=== PATIENT | male | born 1970 | race Caucasian/White ===

== ENCOUNTER 2018-05-16 11:42 | Emergency (ER) | payer OTHER, SELFPAY ==
--- NOTE | 2018-05-16 12:06 | ERPHSYRPT ---
- History of Present Illness Time Seen by Provider: 05/16/18 11:55 Source: patient, family Exam Limitations: no limitations Patient Subjective Stated Complaint: left flank pain since yesterday Triage Nursing Assessment: ambulated to room per self holding left flank area. skin w/d, color normal. denies any injury or difficulty with urination. Physician History: 47 y/o white male with h/o chronic back pain presents with left flank pain that began last pm and worsened this am. pt does not have a h/o kidney stones. he denies hematuria, denies dysuria and other urinary complaints. denies back injury Timing/Duration: hour(s) (24) Method of Injury: unknown (no injury) Quality: sharp, aching Back Pain Location: paraspinous muscles (left flank) Severity of Pain-Max: moderate Severity of Pain-Current: moderate Modifying Factors: Improves With: movement Associated Symptoms: lower back pain (left), No fever, No chills, No loss of bowel control, No nausea, No vomiting, No problems urinating, No muscle spasms Previous symptoms: same symptoms as today Allergies/Adverse Reactions: Sulfa (Sulfonamide Antibiotics) [Sulfa(Sulfonamide Antibiotics)] Allergy ( Intermediate, Verified 05/16/18 11:51) Itching Penicillins Allergy (Verified 05/16/18 11:51) Home Medications: ALPRAZolam [Xanax 0.25 mg] 0.25 mg PO BID 10/04/15 [History] Gabapentin 300 mg PO TID 10/04/15 [History] Ibuprofen 600 mg PO TID 10/04/15 [History] Tamsulosin HCl [Flomax] 0.4 mg PO DAILY 10/04/15 [History] Hydrocodone/Acetaminophen [Hydrocodone-Acetamin 7.5-325] 7.5 mg PO QID 05/16/18 [History] Tizanidine HCl 4 mg PO BID 05/16/18 [History] Hx Tetanus, Diphtheria Vaccination/Date Given: Yes Hx Influenza Vaccination/Date Given: No Hx Pneumococcal Vaccination/Date Given: No - Review of Systems Constitutional: No Symptoms, No Fever, No Chills Eyes: No Symptoms, No Eye Pain Ears, Nose, & Throat: No Symptoms, No Ear Pain Respiratory: No Symptoms, No Dyspnea, No Stridor, No Wheezing Cardiac: No Symptoms, No Chest Pain, No Palpitations, No Syncope Abdominal/Gastrointestinal: No Symptoms, No Abdominal Pain, No Nausea, No Vomiting, No Diarrhea Genitourinary Symptoms: Flank Pain (left), No Dysuria, No Frequency, No Hematuria Musculoskeletal: No Symptoms Skin: No Symptoms Neurological: No Symptoms Psychological: No Symptoms Endocrine: No Symptoms Hematologic/Lymphatic: No Symptoms Immunological/Allergic: No Symptoms All Other Systems: Reviewed and Negative - Past Medical History Pertinent Past Medical History: Yes Neurological History: Peripheral Neuropathy ENT History: No Pertinent History Cardiac History: No Pertinent History Respiratory History: No Pertinent History Endocrine Medical History: No Pertinent History Musculoskeletal History: Other GI Medical History: No Pertinent History History: No Pertinent History Psycho-Social History: No Pertinent History Male Reproductive Disorders: Prostate Problems Other Medical History: HX of MRSA in wound on leg - Past Surgical History Past Surgical History: Yes Neuro Surgical History: No Pertinent History Cardiac: No Pertinent History Respiratory: No Pertinent History Gastrointestinal: Hernia Repair Genitourinary: No Pertinent History Musculoskeletal: Orthopedic Surgery Male Surgical History: No Pertinent History Other Surgical History: neck surgery, back surgery - Social History Smoking Status: Never smoker Exposure to second hand smoke: No Drug Use: none Patient Lives Alone: No - Nursing Vital Signs Nursing Vital Signs: Initial Vital Signs Temperature 97.5 F 05/16/18 11:46 Pulse Rate 61 05/16/18 11:46 Respiratory Rate 16 05/16/18 11:46 Blood Pressure 125/77 05/16/18 11:46 O2 Sat by Pulse Oximetry 96 05/16/18 11:46 Pain Scale Pain Intensity 8 - Physical Exam General Appearance: mild distress, alert Eye Exam: PERRL/EOMI, eyes nml inspection Ears, Nose, Throat Exam: normal ENT inspection Neck Exam: normal inspection, non-tender, supple, full range of motion Respiratory Exam: normal breath sounds, lungs clear, airway intact, No chest tenderness, No respiratory distress, No accessory muscle use, No rhonchi, No wheezing, No stridor Cardiovascular Exam: regular rate/rhythm, normal heart sounds, normal peripheral pulses Gastrointestinal Exam: soft, normal bowel sounds, No tenderness, No guarding, No rebound Rectal Exam: not done Back Exam: normal inspection, normal range of motion, CVA tenderness (left), No vertebral tenderness Extremity Exam: normal inspection, normal range of motion, pelvis stable Neurologic Exam: alert, oriented x 3, cooperative, rotor pilot II-XII nml as tested Skin Exam: normal color, warm, dry Lymphatic Exam: No adenopathy SpO2 Interpretation: normal SpO2: 96 Oxygen Delivery: Room Air - Course Nursing assessment & vital signs reviewed: Yes Ordered Tests: Active Orders 24 hr Category Date Time Status UA W/ MICROSCOPIC Stat Lab 05/16/18 13:15 Completed Urine Triage Profile Stat Lab 05/16/18 13:13 Ordered Lab/Rad Data: Laboratory Results 05/16/18 Range/Units 13:15 Ur Collection Type VOID Urine Color YELLOW (YELLOW) Urine Appearance CLEAR (CLEAR) Urine pH 5.0 (5-6) Ur Specific [place] 1.010 (1.005-1.025) Urine Protein NEGATIVE (Negative) Urine Ketones NEGATIVE (NEGATIVE) Urine Blood NEGATIVE (0-5) Marvin/ul Urine Nitrite NEGATIVE (NEGATIVE) Urine Bilirubin NEGATIVE (NEGATIVE) Urine Urobilinogen NORMAL (0-1) mg/dL Ur Leukocyte Esterase TRACE (NEGATIVE) Urine Microscopic WBC 0-2 (0-5) /HPF Urine Bacteria FEW (NEGATIVE) /HPF Urine Culture Reflexed NO (NO) Urine Glucose NEGATIVE (NEGATIVE) mg/dL Specimen Received 05/16/15 1315 - Progress Progress: unchanged, re-examined - Departure Time of Disposition: 13:43 Departure Disposition: Home Clinical Impression: Back pain Condition: Stable Critical Care Time: No Referrals: SORAYA PATTERSON [Primary Care Provider] - Additional Instructions: continue you pain medications as prescribed. follow up with your prescribing physician for further pain management Prescriptions: Prednisone 10 mg [Deltasone 10 mg] 10 mg PO TID #12 tablet
[2018-05-16 13:15] VITALS: BP 133/81; PULSE 54
[2018-05-16 13:29] LABS: Appearance CLEAR (CLEAR); Bacteria FEW /HPF (NEGATIVE); Bilirubin NEGATIVE (NEGATIVE); Blood NEGATIVE Ery/ul (0-5); Glucose NEGATIVE (NEGATIVE); Ketones NEGATIVE (NEGATIVE); Leukocyte Esterase TRACE (NEGATIVE); Nitrite NEGATIVE (NEGATIVE); Protein,Urine Dip NEGATIVE (Negative); Urobilinogen NORMAL mg/dL (0-1); WBC 0-2 /HPF (0-5)
[2018-05-16] MEDS ORDERED: solu-MEDROL 125 MG IM ONE (13:41)
[2018-05-16 13:42] LABS: Amphetamine,Urine NEGATIVE (NEGATIVE); Barbiturate,Urine NEGATIVE (NEGATIVE); Benzodiazepine,Urine POSITIVE (NEGATIVE); Cocaine,Urine NEGATIVE (NEGATIVE); Methadone,Urine NEGATIVE (NEGATIVE); Opiate,Urine POSITIVE (NEGATIVE); PCP,Urine NEGATIVE (NEGATIVE); THC,Urine NEGATIVE (NEGATIVE)
[2018-05-16] MEDS ORDERED: Hydromorphone 1 mg/ml Ampule IM ONE (13:42)
[2018-05-16] MEDS ORDERED: ZOFRAN ODT 4 MG PO ONE (13:42)
[2018-05-16 13:46] VITALS: O2SAT 96
[2018-05-16] MEDS ORDERED: solu-MEDROL 125 MG ONE (13:47)
[2018-05-16] MEDS ORDERED: Hydromorphone 1 mg/ml Ampule ONE (13:47)
[2018-05-16] MEDS ORDERED: ZOFRAN ODT 4 MG ONE (13:47)
== END 2018-05-16 14:12 | disposition home or self-care (01) ==
LOC: ED 11:42
DX: M54.5 Low back pain (principal); R10.9 Unspecified abdominal pain; Z79.899 Other long term (current) drug therapy
CPT/HCPCS: 80307; 81000; 96372; 99284; J1170; J2930; Q0162